=== PATIENT | male | born 1935 | race Two or more races ===

== ENCOUNTER 2023-12-13 15:57 | Emergency (ER) | payer MEDICARE, BC ==
[~2023-12-13] VITALS: Ht 162.6 cm; Wt 113.4 kg
[2023-12-13 16:12] VITALS: TEMP 98.4
[2023-12-13] MEDS ORDERED: LIDOCAINE 2% JEL UROJET 10 ML MM ONE (16:53)
[2023-12-13 18:32] LABS: BILIRUBIN,URINE NEGATIVE (NEGATIVE); BLOOD, URINE 3+ Ery/uL (NEGATIVE); COLOR,URINE YELLOW (YELLOW); KETONES,URINE NEGATIVE (NEGATIVE); LEUKOCYTE ESTERASE ,URINE 3+ (NEGATIVE); NITRITE, URINE NEGATIVE (NEGATIVE); PROTEIN,URINE 1+ mg/dl (NEGATIVE); UGLUCOSE NEGATIVE (NEGATIVE); UROBILINOGEN,URINE 0.2 EU/dL (0.2)
[2023-12-13 18:33] LABS: APPEARANCE,URINE SLIGHTLY CLOUDY (CLEAR)
[2023-12-13 18:56] LABS: RBC,URINE 51-80 /HPF (0-2); WBC,URINE 51-80 /HPF (0-3)
[2023-12-13 18:57] LABS: ADD URINE CULTURE YES; BACTERIA,URINE 2+ /HPF (None Seen); SQUAMOUS EPITHELIAL CELL,UR 0-2 /HPF (None Seen)
[2023-12-13] MEDS ORDERED: CIPROFLOXACIN HCL 500 MG TABLET PO ONE (19:00)
[2023-12-13] MEDS ORDERED: CIPR-262 PO (19:03)
[2023-12-13] MEDS ORDERED: CIPROFLOXACIN HCL 500 MG TABLET ONE (19:11)
[2023-12-13 21:06] VITALS: BP 140/89; O2SAT 99
== END 2023-12-13 19:38 | disposition home or self-care (01) ==
LOC: ER 16:23
DX: N39.0 Urinary tract infection, site not specified (principal); F03.90 Unspecified dementia, unspecified severity, without behavioral disturbance, psychotic disturbance, mood disturbance, and anxiety
CPT/HCPCS: 99284; 51702; 87086; 81001; J3490

== ENCOUNTER 2024-01-01 02:29 | Inpatient (IN) | payer MEDICARE, BC ==
[~2024-01-01] VITALS: Ht 162.6 cm; Wt 112.9 kg
[~2024-01-01 02:29] MED LIST: CIPR-262 PO
[2024-01-01 03:15] LABS: MONOCYTES # (AUTO) 0.1 K/uL (0.1-1.30); MONOCYTES % (AUTO) 0.4 % (2.0-12.0)
[2024-01-01 03:30] LABS: BASOPHILS # (AUTO) 0.1 K/uL (0.0-0.2); BASOPHILS % (AUTO) 0.7 % (0.0-2.0); HEMATOCRIT 38 % (39-51); LYMPHOCYTES # (AUTO) 0.1 K/uL (0.8-4.8); LYMPHOCYTES % (AUTO) 0.5 % (20.0-44.0); MEAN CORPUSCULAR HEMOGLOBIN 30 PG (26.0-33.0); MEAN CORPUSCULAR HGB CONC 34 g/dl (31.0-36.0); MEAN CORPUSCULAR VOLUME 89 fL (80-96); NEUTROPHILS # (AUTO) 15.7 K/uL (1.8-8.9); NEUTROPHILS % (AUTO) 98.4 % (43.0-81.0); RED BLOOD CELL COUNT(AUTO) 4.31 MIL/uL (4.5-6.0); RED CELL DISTRIBUTION WIDTH 13.8 % (11.5-15.0)
[2024-01-01 03:31] LABS: CALCIUM, SERUM 8.7 mg/dL (8.5-10.1); CARBON DIOXIDE 18 mmol/L (21-32); CHLORIDE 101 mmol/L (98-107); CREATININE 5.2 mg/dL (0.6-1.3); GLUCOSE 137 mg/dL (74-106); POTASSIUM 4.1 mmol/L (3.5-5.1); SODIUM SERUM 139 mmol/L (136-145); UREA NITROGEN, BLOOD 67 mg/dL (7-18)
[2024-01-01 03:32] LABS: INR 1.24 (0.91-1.10)
[2024-01-01 03:34] LABS: PLATELET COUNT (AUTO) 12 K/uL (150-450)
[2024-01-01 03:37] LABS: ALANINE AMINOTRANSFERASE 27 U/L (12-78); ALBUMIN 3.6 g/dL (3.4-5.0); ALKALINE PHOSPHATASE 76 U/L (46-116); ASPARTATE AMINOTRANSFERASE 72 U/L (15-37); BILIRUBIN,DIRECT 0.2 mg/dL (0.0-0.2); BILIRUBIN,TOTAL 0.8 mg/dL (0.2-1.0); TOTAL PROTEIN, SERUM 7.1 g/dL (6.4-8.2)
[2024-01-01] MEDS ORDERED: CEFTRIAXONE 1GM BAG (ER ONLY) 50 ML IV ONE (03:47)
[2024-01-01 04:14] LABS: APPEARANCE,URINE CLOUDY (CLEAR); BILIRUBIN,URINE NEGATIVE (NEGATIVE); BLOOD, URINE 3+ Ery/uL (NEGATIVE); COLOR,URINE YELLOW (YELLOW); KETONES,URINE NEGATIVE (NEGATIVE); LEUKOCYTE ESTERASE ,URINE 3+ (NEGATIVE); NITRITE, URINE NEGATIVE (NEGATIVE); PH,URINE 7.5 (5.0-8.0); PROTEIN,URINE 2+ mg/dl (NEGATIVE); UGLUCOSE NEGATIVE (NEGATIVE); UROBILINOGEN,URINE 0.2 EU/dL (0.2)
[2024-01-01] MEDS: CEFTRIAXONE 1GM BAG (ER ONLY) 1 GM/50 ML PIGGYBACK IV ONE (04:15)
[2024-01-01] MEDS: IV NS 0.9% 1,000 ML IV PRN (04:15)
[2024-01-01 04:50] LABS: ADD URINE CULTURE YES; BACTERIA,URINE Many /HPF (None Seen); RBC,URINE TOO NUMEROUS TO COUN /HPF (0-2); SQUAMOUS EPITHELIAL CELL,UR Few /HPF (None Seen); WBC,URINE TOO NUMEROUS TO COUN /HPF (0-3)
[2024-01-01 04:59] LABS: ANISOCYTOSIS 1+; BAND % (MANUAL) 6 % (0.0-5.0); LYMPHOCYTES % (MANUAL) 1 % (16-48); MONOCYTES % (MANUAL) 3 % (0-11.0); NEUTROPHILS % (MANUAL) 90 (42-76); PLATELET ESTIMATE GIANT PLATELET SEEN
[2024-01-01] MEDS ORDERED: ONDANSETRON HCL/PF 4 MG/2 ML VIAL IVP PRN (05:30)
[2024-01-01] MEDS ORDERED: MORPHINE SULFATE INJ 2 MG/ML DISP.SYRIN IV PRN (05:30)
[2024-01-01] MEDS: IV NS 0.9% 1,000 ML IV ONE (05:40)
[2024-01-01 07:33] LABS: LACTIC ACID 2.1 mmol/L (0.4-2.0)
[2024-01-01] MEDS: ACETAMINOPHEN 325 MG TABLET PO PRN (08:35)
[2024-01-01] MEDS ORDERED: ACET325T53 PO (09:58)
[2024-01-01] MEDS ORDERED: TAMS-12 PO (09:58)
[2024-01-01] MEDS ORDERED: AMLO-212 PO (09:58)
[2024-01-01] MEDS ORDERED: PRAV20TA4 PO (09:58)
[2024-01-01] MEDS ORDERED: NA P133E RC (09:58)
[2024-01-01] MEDS ORDERED: BISA10SU11 RC (09:58)
[2024-01-01] MEDS ORDERED: FINA5TAB11 PO (09:58)
[2024-01-01] MEDS ORDERED: ELTR75TA PO (09:58)
[2024-01-01 10:07] LABS: ABG BASE EXCESS -7.6 mmol/L; ABG OXYGEN SATURATION 91.3 % (92.0-98.5); ABG PCO2 24.5 mmHg (35.0-45.0); ABG PH 7.414 (7.350-7.450); ABG PO2 60.7 mmHg (75.0-100.0); ABG TOTAL HEMOGLOBIN 12.2 G/dL (13.5-18.0); AaDO2 167.6 mmHg; COHb 0.2 % (0.5-1.5); MetHb 0.2 % (0.0-1.5); O2Hb 90.9 % (94.0-97.0); SITE, ABG Right Radial; VENT MODE, BG 4LPM NC
[2024-01-01 10:19] VITALS: BP 90/50; TEMP 102.9; O2SAT 94
[2024-01-01 10:29] VITALS: BP 104/47; TEMP 101.2; O2SAT 97
[2024-01-01 10:45] VITALS: BP 100/50; TEMP 100.1; O2SAT 97
[2024-01-01] MEDS: Z GUARD REMEDY 4 OZ OINT TP SCH (11:45)
[2024-01-01] MEDS ORDERED: NA PHOS,M-B/NA PHOS,DI-BA 1 EA ENEMA RC PRN (12:30)
[2024-01-01 13:25] VITALS: BP 104/47; TEMP 99.8; O2SAT 97
[2024-01-01] MEDS ORDERED: ACETAMINOPHEN 325 MG TABLET PO ONE (14:00)
[2024-01-01] MEDS ORDERED: diphenhydrAMINE HCL 50 MG/ML VIAL IV ONE (14:00)
[2024-01-01 16:00] VITALS: BP 98/51; TEMP 99; O2SAT 97
[2024-01-01 16:25] LABS: FREE PSA 21.34 ng/mL (0.00-45); PROSTATE SPECIFIC ANTIGEN SCR 61.21 ng/mL (0.00-4.00); THYROID STIMULATING HORMONE 0.326 uIU/mL (0.358-3.74)
[2024-01-01 17:03] LABS: RHEUMATOID FACTOR SCREEN NEGATIVE (NEGATIVE)
[2024-01-01 20:00] VITALS: BP 90/53; TEMP 99.5; O2SAT 97
[2024-01-01] MEDS: CEFEPIME 1 GM in IV D5W 50 ML IV SCH (21:57)
[2024-01-02] VITALS (10 sets, daily range): BP systolic 101–120; BP diastolic 47–58; TEMP 97.5–98.7; O2SAT 95–99
[2024-01-02] MEDS ORDERED: CEFTRIAXONE 1 G in IV D5W 50 ML IV SCH (06:00)
[2024-01-02 07:03] LABS: INR 1.2 (0.91-1.10); PARTIAL THROMBOPLASTIN TIME 35.3 SEC (24.3-34.3); PROTHROMBIN TIME 12.6 SECS (9.2-11.1)
[2024-01-02 07:05] LABS: D-DIMER 8.27 mg/L(FEU (0.17-0.50)
[2024-01-02 07:10] LABS: ALANINE AMINOTRANSFERASE 57 U/L (12-78); ALBUMIN 2.5 g/dL (3.4-5.0); ALKALINE PHOSPHATASE 54 U/L (46-116); ASPARTATE AMINOTRANSFERASE 145 U/L (15-37); BILIRUBIN,TOTAL 0.6 mg/dL (0.2-1.0); CALCIUM, SERUM 7.7 mg/dL (8.5-10.1); CARBON DIOXIDE 20 mmol/L (21-32); CHLORIDE 110 mmol/L (98-107); GLUCOSE 109 mg/dL (74-106); MAGNESIUM 2.5 mg/dL (1.8-2.4); PHOSPHORUS 6.5 mg/dL (2.5-4.9); POTASSIUM 3.6 mmol/L (3.5-5.1); SODIUM SERUM 146 mmol/L (136-145); TOTAL PROTEIN, SERUM 5.7 g/dL (6.4-8.2)
[2024-01-02 07:12] LABS: UREA NITROGEN, BLOOD 84 mg/dL (7-18)
[2024-01-02 07:48] LABS: BASOPHILS % (AUTO) 0.1 % (0.0-2.0); HEMATOCRIT 34 % (39-51); HEMOGLOBIN 11.7 g/dL (13.5-17.5); LYMPHOCYTES # (AUTO) 0.2 K/uL (0.8-4.8); LYMPHOCYTES % (AUTO) 1.1 % (20.0-44.0); MEAN CORPUSCULAR HEMOGLOBIN 31 PG (26.0-33.0); MEAN CORPUSCULAR HGB CONC 34 g/dl (31.0-36.0); MEAN CORPUSCULAR VOLUME 89 fL (80-96); MONOCYTES # (AUTO) 0.5 K/uL (0.1-1.30); MONOCYTES % (AUTO) 2.2 % (2.0-12.0); NEUTROPHILS # (AUTO) 20.7 K/uL (1.8-8.9); NEUTROPHILS % (AUTO) 96.6 % (43.0-81.0); RED BLOOD CELL COUNT(AUTO) 3.83 MIL/uL (4.5-6.0); RED CELL DISTRIBUTION WIDTH 13.9 % (11.5-15.0); WHITE BLOOD COUNT (AUTO) 21.5 K/uL (4.3-11.0)
[2024-01-02 07:51] LABS: PLATELET COUNT (AUTO) 7 K/uL (150-450)
[2024-01-02 08:08] LABS: IMMUNOGLOBULIN A, SERUM 59 mg/dL (61-437); IMMUNOGLOBULIN G, SERUM 666 mg/dL (603-1613); IMMUNOGLOBULIN M, SERUM 303 mg/dL (15-143)
[2024-01-02] MEDS ORDERED: NEPRO VAN 237 ML CAN PO PRN (08:30)
[2024-01-02 09:08] LABS: *ANA ANTI-CENTROMERE B AB <0.2 AI (0.0-0.9); *ANA ANTI-DNA(DS) AB, QN <1 IU/mL (0-9); *ANA ANTI-JO-1 <0.2 AI (0.0-0.9); *ANA ANTICHROMATIN ANTIBODY 0.8 AI (0.0-0.9); *ANA RNP ANTIBODIES >8.0 AI (0.0-0.9); *ANA SJOGREN'S ANTI-SS-A <0.2 AI (0.0-0.9); *ANA SJOGREN'S ANTI-SS-B <0.2 AI (0.0-0.9); *ANAANTI-SCLERODERMA-70 AB <0.2 AI (0.0-0.9); *ANASMITH AB <0.2 AI (0.0-0.9)
[2024-01-02] MEDS: dexaMETHasone SOD PHOSPHATE 10 MG/ML VIAL IV SCH (10:41)
[2024-01-02 11:12] LABS: *SPE A/G RATIO 1.1 (0.7-1.7); *SPE ALBUMIN 2.8 g/dL (2.9-4.4); *SPE ALPHA-1-GLOBULIN 0.4 g/dL (0.0-0.4); *SPE ALPHA-2-GLOBULIN 0.7 g/dL (0.4-1.0); *SPE BETA GLOBULIN 0.6 g/dL (0.7-1.3); *SPE GLOBULIN, TOTAL 2.5 g/dL (2.2-3.9); *SPE M-SPIKE 0.4 g/dL (Not Observed); *SPE PROTEIN TOTAL 5.3 g/dL (6.0-8.5); *SPEGAMMA GLOBULIN 0.8 g/dL (0.4-1.8); HEPATITIS B SURFACE AB Non Reactive (.)
[2024-01-02 11:17] LABS: ANISOCYTOSIS 1+; BAND % (MANUAL) 22 % (0.0-5.0); EOSINOPHILS % (MANUAL) 0 % (0-4); LYMPHOCYTES % (MANUAL) 2 % (16-48); MONOCYTES % (MANUAL) 3 % (0-11.0); NEUTROPHILS % (MANUAL) 73 (42-76); PLATELET ESTIMATE DECREASED
[2024-01-02 14:57] LABS: BASOPHILS % (AUTO) 0.1 % (0.0-2.0); EOSINOPHILS % (AUTO) 0.1 % (0.0-6.0); HEMATOCRIT 33 % (39-51); HEMOGLOBIN 11.2 g/dL (13.5-17.5); LYMPHOCYTES # (AUTO) 0.2 K/uL (0.8-4.8); MEAN CORPUSCULAR HEMOGLOBIN 30 PG (26.0-33.0); MEAN CORPUSCULAR HGB CONC 34 g/dl (31.0-36.0); MEAN CORPUSCULAR VOLUME 89 fL (80-96); MONOCYTES # (AUTO) 0.5 K/uL (0.1-1.30); MONOCYTES % (AUTO) 2.2 % (2.0-12.0); NEUTROPHILS # (AUTO) 21.7 K/uL (1.8-8.9); NEUTROPHILS % (AUTO) 96.6 % (43.0-81.0); RED BLOOD CELL COUNT(AUTO) 3.73 MIL/uL (4.5-6.0); RED CELL DISTRIBUTION WIDTH 14.2 % (11.5-15.0); WHITE BLOOD COUNT (AUTO) 22.4 K/uL (4.3-11.0)
[2024-01-02 15:00] LABS: PLATELET COUNT (AUTO) 6 K/uL (150-450)
[2024-01-02] MEDS: diphenhydrAMINE HCL 50 MG/ML VIAL IV ONE (15:30)
[2024-01-02] MEDS: ACETAMINOPHEN 325 MG TABLET PO ONE (15:30)
[2024-01-02 15:42] LABS: EOSINOPHILS % (AUTO) 0.1 % (0.0-6.0); HEMATOCRIT 33 % (39-51); HEMOGLOBIN 11.1 g/dL (13.5-17.5); LYMPHOCYTES # (AUTO) 0.3 K/uL (0.8-4.8); LYMPHOCYTES % (AUTO) 1.2 % (20.0-44.0); MEAN CORPUSCULAR HEMOGLOBIN 30 PG (26.0-33.0); MEAN CORPUSCULAR HGB CONC 33 g/dl (31.0-36.0); MEAN CORPUSCULAR VOLUME 90 fL (80-96); MONOCYTES % (AUTO) 4.3 % (2.0-12.0); NEUTROPHILS # (AUTO) 21.9 K/uL (1.8-8.9); NEUTROPHILS % (AUTO) 94.4 % (43.0-81.0); RED BLOOD CELL COUNT(AUTO) 3.71 MIL/uL (4.5-6.0); RED CELL DISTRIBUTION WIDTH 14.5 % (11.5-15.0); WHITE BLOOD COUNT (AUTO) 23.2 K/uL (4.3-11.0)
[2024-01-02 15:55] LABS: BAND % (MANUAL) 12 % (0.0-5.0); LYMPHOCYTES % (MANUAL) 3 % (16-48); MONOCYTES % (MANUAL) 2 % (0-11.0); NEUTROPHILS % (MANUAL) 83 (42-76)
[2024-01-02 15:56] LABS: PLATELET ESTIMATE DECREASED
[2024-01-02 16:43] LABS: PLATELET COUNT (AUTO) 5 K/uL (150-450)
[2024-01-02] MEDS: FERROUS SULFATE (325 MG) 325 MG/TAB TABLET PO SCH (17:46)
[2024-01-02 18:47] LABS: PLATELET ESTIMATE DECREASED
[2024-01-03] VITALS: BP 110/60; TEMP 98; O2SAT 99
[2024-01-03 03:07] LABS: FOLIC ACID 10.2 ng/mL (>3.0)
[2024-01-03 04:00] VITALS: BP 140/66; TEMP 98; O2SAT 99
[2024-01-03 07:22] LABS: HEMATOCRIT 34 % (39-51); HEMOGLOBIN 11.4 g/dL (13.5-17.5); LYMPHOCYTES # (AUTO) 0.5 K/uL (0.8-4.8); LYMPHOCYTES % (AUTO) 1.9 % (20.0-44.0); MEAN CORPUSCULAR HEMOGLOBIN 30 PG (26.0-33.0); MEAN CORPUSCULAR HGB CONC 34 g/dl (31.0-36.0); MEAN CORPUSCULAR VOLUME 89 fL (80-96); NEUTROPHILS # (AUTO) 23.2 K/uL (1.8-8.9); NEUTROPHILS % (AUTO) 94.1 % (43.0-81.0); RED BLOOD CELL COUNT(AUTO) 3.79 MIL/uL (4.5-6.0); RED CELL DISTRIBUTION WIDTH 14.3 % (11.5-15.0); WHITE BLOOD COUNT (AUTO) 24.6 K/uL (4.3-11.0)
[2024-01-03 07:37] LABS: INR 1.07 (0.91-1.10); PARTIAL THROMBOPLASTIN TIME 30.1 SEC (24.3-34.3); PROTHROMBIN TIME 11.3 SECS (9.2-11.1)
[2024-01-03 07:44] LABS: D-DIMER 7.23 mg/L(FEU (0.17-0.50)
[2024-01-03 07:55] LABS: PLATELET COUNT (AUTO) 6 K/uL (150-450)
[2024-01-03 07:57] LABS: CALCIUM, SERUM 7.9 mg/dL (8.5-10.1); CARBON DIOXIDE 22 mmol/L (21-32); CHLORIDE 113 mmol/L (98-107); CREATININE 2.4 mg/dL (0.6-1.3); GLUCOSE 116 mg/dL (74-106); POTASSIUM 3.5 mmol/L (3.5-5.1); SODIUM SERUM 150 mmol/L (136-145)
[2024-01-03 08:00] VITALS: BP 136/62; TEMP 98.1; O2SAT 97
[2024-01-03 08:01] LABS: UREA NITROGEN, BLOOD 88 mg/dL (7-18)
[2024-01-03 11:24] LABS: ANISOCYTOSIS 1+; BAND % (MANUAL) 11 % (0.0-5.0); BASOPHILS % (MANUAL) 0 % (0.0-2.0); EOSINOPHILS % (MANUAL) 0 % (0-4); LYMPHOCYTES % (MANUAL) 3 % (16-48); MONOCYTES % (MANUAL) 5 % (0-11.0); NEUTROPHILS % (MANUAL) 81 (42-76); PLATELET ESTIMATE DECREASED
[2024-01-03 12:00] VITALS: BP 131/70; TEMP 98.3; O2SAT 97
[2024-01-03] MEDS: diphenhydrAMINE HCL 50 MG/ML VIAL IV ONE (14:40)
[2024-01-03] MEDS: ACETAMINOPHEN 325 MG TABLET PO ONE (14:40)
[2024-01-03 16:00] VITALS: BP 119/70; TEMP 98.1; O2SAT 97
[2024-01-03] MEDS: IV D5/0.45 NACL 1,000 ML IV PRN (17:01)
[2024-01-03 20:00] VITALS: BP 120/61; TEMP 97.9; O2SAT 96
[2024-01-04] VITALS (8 sets, daily range): BP systolic 112–140; BP diastolic 56–82; TEMP 97.9–98.9; O2SAT 92–100
[2024-01-04 07:07] LABS: BASOPHILS % (AUTO) 0.1 % (0.0-2.0); HEMATOCRIT 33 % (39-51); HEMOGLOBIN 11.1 g/dL (13.5-17.5); LYMPHOCYTES # (AUTO) 0.9 K/uL (0.8-4.8); LYMPHOCYTES % (AUTO) 4.4 % (20.0-44.0); MEAN CORPUSCULAR HEMOGLOBIN 30 PG (26.0-33.0); MEAN CORPUSCULAR HGB CONC 34 g/dl (31.0-36.0); MEAN CORPUSCULAR VOLUME 89 fL (80-96); MONOCYTES # (AUTO) 1.7 K/uL (0.1-1.30); NEUTROPHILS # (AUTO) 18.9 K/uL (1.8-8.9); NEUTROPHILS % (AUTO) 87.5 % (43.0-81.0); RED BLOOD CELL COUNT(AUTO) 3.71 MIL/uL (4.5-6.0); RED CELL DISTRIBUTION WIDTH 13.9 % (11.5-15.0); WHITE BLOOD COUNT (AUTO) 21.6 K/uL (4.3-11.0)
[2024-01-04 07:14] LABS: PLATELET COUNT (AUTO) 3 K/uL (150-450)
[2024-01-04 07:26] LABS: D-DIMER 2.95 mg/L(FEU (0.17-0.50); INR 1.09 (0.91-1.10); PARTIAL THROMBOPLASTIN TIME 29.1 SEC (24.3-34.3); PROTHROMBIN TIME 11.5 SECS (9.2-11.1)
[2024-01-04 07:30] LABS: CARBON DIOXIDE 27 mmol/L (21-32); CHLORIDE 110 mmol/L (98-107); CREATININE 1.6 mg/dL (0.6-1.3); GLUCOSE 139 mg/dL (74-106); POTASSIUM 3.5 mmol/L (3.5-5.1); SODIUM SERUM 146 mmol/L (136-145); UREA NITROGEN, BLOOD 76 mg/dL (7-18)
[2024-01-04 11:32] LABS: ANISOCYTOSIS 1+; BAND % (MANUAL) 13 % (0.0-5.0); BASOPHILS % (MANUAL) 0 % (0.0-2.0); EOSINOPHILS % (MANUAL) 0 % (0-4); LYMPHOCYTES % (MANUAL) 3 % (16-48); MONOCYTES % (MANUAL) 5 % (0-11.0); NEUTROPHILS % (MANUAL) 79 (42-76); PLATELET ESTIMATE DECREASED
[2024-01-04] MEDS ORDERED: diphenhydrAMINE HCL 50 MG/ML VIAL IV ONE (12:00)
[2024-01-04] MEDS ORDERED: DIPHENHYDRAMINE HCL 12.5 MG/5 ML UDC PO PRN (22:30)
[2024-01-04] MEDS: diphenhydrAMINE HCL 50 MG/ML VIAL IV PRN (22:51)
[2024-01-04] MEDS: ACETAMINOPHEN 325 MG TABLET PO ONE (22:51)
[2024-01-05] VITALS (25 sets, daily range): BP systolic 108–160; BP diastolic 52–95; TEMP 97–98.1; O2SAT 95–98
[2024-01-05 09:22] LABS: CALCIUM, SERUM 8.3 mg/dL (8.5-10.1); CREATININE 1.3 mg/dL (0.6-1.3); POTASSIUM 3.5 mmol/L (3.5-5.1)
[2024-01-05 09:43] LABS: BASOPHILS # (AUTO) 0.1 K/uL (0.0-0.2); BASOPHILS % (AUTO) 0.3 % (0.0-2.0); EOSINOPHILS % (AUTO) 0.1 % (0.0-6.0); HEMATOCRIT 33 % (39-51); HEMOGLOBIN 11.1 g/dL (13.5-17.5); LYMPHOCYTES # (AUTO) 2.4 K/uL (0.8-4.8); LYMPHOCYTES % (AUTO) 14.5 % (20.0-44.0); MEAN CORPUSCULAR HEMOGLOBIN 30 PG (26.0-33.0); MEAN CORPUSCULAR HGB CONC 33 g/dl (31.0-36.0); MEAN CORPUSCULAR VOLUME 89 fL (80-96); MONOCYTES # (AUTO) 1.2 K/uL (0.1-1.30); MONOCYTES % (AUTO) 7.6 % (2.0-12.0); NEUTROPHILS # (AUTO) 12.6 K/uL (1.8-8.9); NEUTROPHILS % (AUTO) 77.5 % (43.0-81.0); RED BLOOD CELL COUNT(AUTO) 3.76 MIL/uL (4.5-6.0); RED CELL DISTRIBUTION WIDTH 13.6 % (11.5-15.0); RETICULOCYTE COUNT 0.2 % (0.6-2.5); WHITE BLOOD COUNT (AUTO) 16.3 K/uL (4.3-11.0)
[2024-01-05 09:46] LABS: PLATELET COUNT (AUTO) 4 K/uL (150-450)
[2024-01-05 10:02] LABS: D-DIMER 2.41 mg/L(FEU (0.17-0.50); INR 1.18 (0.91-1.10); PARTIAL THROMBOPLASTIN TIME 26.7 SEC (24.3-34.3); PROTHROMBIN TIME 12.4 SECS (9.2-11.1)
[2024-01-05 11:54] LABS: ANISOCYTOSIS 1+; BAND % (MANUAL) 2 % (0.0-5.0); BASOPHILS % (MANUAL) 0 % (0.0-2.0); EOSINOPHILS % (MANUAL) 0 % (0-4); LYMPHOCYTES % (MANUAL) 21 % (16-48); MONOCYTES % (MANUAL) 6 % (0-11.0); NEUTROPHILS % (MANUAL) 71 (42-76)
[2024-01-05 12:40] LABS: PLATELET ESTIMATE DECREASED
[2024-01-06] VITALS: BP 157/63; TEMP 98.2; O2SAT 94
[2024-01-06 04:00] VITALS: BP 159/63; TEMP 97.3; O2SAT 93
[2024-01-06 07:39] LABS: BASOPHILS % (AUTO) 0.3 % (0.0-2.0); EOSINOPHILS # (AUTO) 0.1 K/uL (0.0-0.7); EOSINOPHILS % (AUTO) 0.4 % (0.0-6.0); HEMATOCRIT 33 % (39-51); LYMPHOCYTES # (AUTO) 2.4 K/uL (0.8-4.8); LYMPHOCYTES % (AUTO) 14.7 % (20.0-44.0); MEAN CORPUSCULAR HEMOGLOBIN 30 PG (26.0-33.0); MEAN CORPUSCULAR HGB CONC 34 g/dl (31.0-36.0); MEAN CORPUSCULAR VOLUME 89 fL (80-96); MONOCYTES # (AUTO) 1.9 K/uL (0.1-1.30); MONOCYTES % (AUTO) 11.5 % (2.0-12.0); NEUTROPHILS # (AUTO) 11.8 K/uL (1.8-8.9); NEUTROPHILS % (AUTO) 73.1 % (43.0-81.0); RED BLOOD CELL COUNT(AUTO) 3.69 MIL/uL (4.5-6.0); RED CELL DISTRIBUTION WIDTH 13.6 % (11.5-15.0)
[2024-01-06 07:42] LABS: D-DIMER 3.52 mg/L(FEU (0.17-0.50); INR 1.19 (0.91-1.10); PARTIAL THROMBOPLASTIN TIME 25.4 SEC (24.3-34.3); PROTHROMBIN TIME 12.5 SECS (9.2-11.1)
[2024-01-06 07:52] LABS: PLATELET COUNT (AUTO) 7 K/uL (150-450)
[2024-01-06 08:00] VITALS: BP 165/75; TEMP 97.6; O2SAT 95
[2024-01-06 09:00] LABS: CALCIUM, SERUM 8.2 mg/dL (8.5-10.1); CREATININE 1.3 mg/dL (0.6-1.3); POTASSIUM 3.6 mmol/L (3.5-5.1)
[2024-01-06 09:22] LABS: WHITE BLOOD COUNT (AUTO) 16.1 K/uL (4.3-11.0)
[2024-01-06 10:58] LABS: ANISOCYTOSIS 1+; BAND % (MANUAL) 2 % (0.0-5.0); BASOPHILS % (MANUAL) 0 % (0.0-2.0); EOSINOPHILS % (MANUAL) 0 % (0-4); LYMPHOCYTES % (MANUAL) 18 % (16-48); MONOCYTES % (MANUAL) 7 % (0-11.0); NEUTROPHILS % (MANUAL) 73 (42-76); OVALOCYTES 1+; PLATELET ESTIMATE GIANT PLATELET SEEN
[2024-01-06 12:00] VITALS: BP 129/58; TEMP 97.6; O2SAT 96
[2024-01-06 16:00] VITALS: BP 164/73; TEMP 98.3; O2SAT 95
[2024-01-06] MEDS: methylPREDNISolone SOD SUCC 125 MG/2ML VIAL IV SCH (17:38)
[2024-01-06 20:00] VITALS: BP 139/71; TEMP 99; O2SAT 95
[2024-01-06] MEDS ORDERED: LEVOFLOXACIN 500 MG /D5W 100ML 500 MG in PREMIX 1 EA IV SCH (22:00)
[2024-01-06 22:23] LABS: BASOPHILS % (AUTO) 0.2 % (0.0-2.0); EOSINOPHILS # (AUTO) 0.2 K/uL (0.0-0.7); EOSINOPHILS % (AUTO) 0.8 % (0.0-6.0); HEMATOCRIT 35 % (39-51); HEMOGLOBIN 11.7 g/dL (13.5-17.5); LYMPHOCYTES # (AUTO) 2.6 K/uL (0.8-4.8); LYMPHOCYTES % (AUTO) 12.9 % (20.0-44.0); MEAN CORPUSCULAR HEMOGLOBIN 30 PG (26.0-33.0); MEAN CORPUSCULAR HGB CONC 33 g/dl (31.0-36.0); MEAN CORPUSCULAR VOLUME 89 fL (80-96); MONOCYTES # (AUTO) 1.8 K/uL (0.1-1.30); MONOCYTES % (AUTO) 9.1 % (2.0-12.0); NEUTROPHILS # (AUTO) 15.5 K/uL (1.8-8.9); RED BLOOD CELL COUNT(AUTO) 3.97 MIL/uL (4.5-6.0); RED CELL DISTRIBUTION WIDTH 13.6 % (11.5-15.0); WHITE BLOOD COUNT (AUTO) 20.2 K/uL (4.3-11.0)
[2024-01-06 22:45] LABS: PLATELET COUNT (AUTO) 10 K/uL (150-450)
[2024-01-06] MEDS: diphenhydrAMINE HCL 50 MG/ML VIAL IV ONE (23:07)
[2024-01-06] MEDS: ACETAMINOPHEN 325 MG TABLET PO ONE (23:07)
[2024-01-07] VITALS (15 sets, daily range): BP systolic 130–169; BP diastolic 57–80; TEMP 97.5–98.5; O2SAT 94–95
[2024-01-07] MEDS ORDERED: OLANZAPINE 10 MG VIAL IM SCH (02:00)
[2024-01-07] MEDS: OLANZAPINE 10 MG VIAL IM PRN (02:06)
[2024-01-07 07:13] LABS: BASOPHILS % (AUTO) 0.2 % (0.0-2.0); EOSINOPHILS # (AUTO) 0.2 K/uL (0.0-0.7); HEMATOCRIT 34 % (39-51); HEMOGLOBIN 11.5 g/dL (13.5-17.5); LYMPHOCYTES # (AUTO) 2.5 K/uL (0.8-4.8); LYMPHOCYTES % (AUTO) 13.7 % (20.0-44.0); MEAN CORPUSCULAR HEMOGLOBIN 30 PG (26.0-33.0); MEAN CORPUSCULAR HGB CONC 34 g/dl (31.0-36.0); MEAN CORPUSCULAR VOLUME 88 fL (80-96); MONOCYTES # (AUTO) 1.1 K/uL (0.1-1.30); MONOCYTES % (AUTO) 6.1 % (2.0-12.0); NEUTROPHILS # (AUTO) 14.2 K/uL (1.8-8.9); RED BLOOD CELL COUNT(AUTO) 3.86 MIL/uL (4.5-6.0); RED CELL DISTRIBUTION WIDTH 13.3 % (11.5-15.0)
[2024-01-07 07:15] LABS: PLATELET COUNT (AUTO) 24 K/uL (150-450)
[2024-01-07 07:23] LABS: D-DIMER 3.98 mg/L(FEU (0.17-0.50); INR 1.17 (0.91-1.10); PARTIAL THROMBOPLASTIN TIME 25.6 SEC (24.3-34.3); PROTHROMBIN TIME 12.3 SECS (9.2-11.1)
[2024-01-07] MEDS: LEVOFLOXACIN 500 MG /D5W 100ML 500 MG in PREMIX 1 EA IV SCH (07:33)
[2024-01-07 09:20] LABS: CALCIUM, SERUM 8.4 mg/dL (8.5-10.1); CARBON DIOXIDE 26 mmol/L (21-32); CHLORIDE 107 mmol/L (98-107); CREATININE 1.3 mg/dL (0.6-1.3); GLUCOSE 102 mg/dL (74-106); POTASSIUM 3.1 mmol/L (3.5-5.1); SODIUM SERUM 147 mmol/L (136-145); UREA NITROGEN, BLOOD 4 mg/dL (7-18)
[2024-01-07 10:02] LABS: ANISOCYTOSIS 1+; BASOPHILS % (MANUAL) 0 % (0.0-2.0); EOSINOPHILS % (MANUAL) 1 % (0-4); LYMPHOCYTES % (MANUAL) 11 % (16-48); MONOCYTES % (MANUAL) 8 % (0-11.0); NEUTROPHILS % (MANUAL) 80 (42-76); PLATELET ESTIMATE GIANT PLATELET SEEN
[2024-01-07 10:03] LABS: OVALOCYTES 1+
[2024-01-07] MEDS ORDERED: OLANZAPINE 10 MG VIAL IM PRN (11:00)
[2024-01-08] VITALS: BP 135/74; TEMP 98.7; O2SAT 95
[2024-01-08] MEDS: POTASSIUM CL. PREMIX PERIPHER. 50 ML IV ONE (01:45)
[2024-01-08] MEDS: POTASSIUM CL. PREMIX PERIPHER. 50 ML IV SCH (03:30)
[2024-01-08 04:00] VITALS: BP 127/71; TEMP 98.5; O2SAT 97
[2024-01-08 07:44] LABS: BASOPHILS % (AUTO) 0.1 % (0.0-2.0); EOSINOPHILS # (AUTO) 0.1 K/uL (0.0-0.7); EOSINOPHILS % (AUTO) 0.5 % (0.0-6.0); HEMATOCRIT 33 % (39-51); LYMPHOCYTES # (AUTO) 2.4 K/uL (0.8-4.8); LYMPHOCYTES % (AUTO) 11.1 % (20.0-44.0); MEAN CORPUSCULAR HEMOGLOBIN 31 PG (26.0-33.0); MEAN CORPUSCULAR HGB CONC 34 g/dl (31.0-36.0); MEAN CORPUSCULAR VOLUME 92 fL (80-96); MONOCYTES # (AUTO) 1.4 K/uL (0.1-1.30); MONOCYTES % (AUTO) 6.4 % (2.0-12.0); NEUTROPHILS # (AUTO) 17.7 K/uL (1.8-8.9); NEUTROPHILS % (AUTO) 81.9 % (43.0-81.0); RED BLOOD CELL COUNT(AUTO) 3.56 MIL/uL (4.5-6.0); RED CELL DISTRIBUTION WIDTH 13.8 % (11.5-15.0); WHITE BLOOD COUNT (AUTO) 21.6 K/uL (4.3-11.0)
[2024-01-08 07:58] LABS: D-DIMER 2.81 mg/L(FEU (0.17-0.50); INR 1.22 (0.91-1.10); PARTIAL THROMBOPLASTIN TIME 24.9 SEC (24.3-34.3); PROTHROMBIN TIME 12.8 SECS (9.2-11.1)
[2024-01-08 07:59] LABS: CALCIUM, SERUM 8.3 mg/dL (8.5-10.1); CREATININE 1.3 mg/dL (0.6-1.3); MAGNESIUM 1.8 mg/dL (1.8-2.4); PHOSPHORUS 2.8 mg/dL (2.5-4.9)
[2024-01-08 08:00] VITALS: BP 105/59; TEMP 98.1; O2SAT 96
[2024-01-08 08:03] LABS: PLATELET COUNT (AUTO) 34 K/uL (150-450)
[2024-01-08] MEDS: methylPREDNISolone SOD SUCC 125 MG/2ML VIAL IV SCH (09:08)
[2024-01-08 10:30] LABS: ANISOCYTOSIS 1+; BAND % (MANUAL) 6 % (0.0-5.0); BASOPHILS % (MANUAL) 0 % (0.0-2.0); EOSINOPHILS % (MANUAL) 1 % (0-4); LYMPHOCYTES % (MANUAL) 14 % (16-48); MONOCYTES % (MANUAL) 4 % (0-11.0); NEUTROPHILS % (MANUAL) 75 (42-76); OVALOCYTES 1+; PLATELET ESTIMATE GIANT PLATELET SEEN
[2024-01-08 12:00] VITALS: BP 120/60; TEMP 98.2; O2SAT 94
[2024-01-08 16:00] VITALS: BP 108/58; TEMP 98.3; O2SAT 94
[2024-01-08 20:00] VITALS: BP 118/67; TEMP 98.3; O2SAT 99
[2024-01-09] VITALS: BP 134/73; TEMP 98; O2SAT 94
[2024-01-09 04:00] VITALS: BP 115/61; TEMP 97.9; O2SAT 95
[2024-01-09 07:22] LABS: BASOPHILS % (AUTO) 0.2 % (0.0-2.0); EOSINOPHILS # (AUTO) 0.1 K/uL (0.0-0.7); EOSINOPHILS % (AUTO) 0.4 % (0.0-6.0); HEMATOCRIT 31 % (39-51); HEMOGLOBIN 10.4 g/dL (13.5-17.5); LYMPHOCYTES % (AUTO) 14.2 % (20.0-44.0); MEAN CORPUSCULAR HEMOGLOBIN 30 PG (26.0-33.0); MEAN CORPUSCULAR HGB CONC 33 g/dl (31.0-36.0); MEAN CORPUSCULAR VOLUME 89 fL (80-96); MONOCYTES # (AUTO) 1.6 K/uL (0.1-1.30); MONOCYTES % (AUTO) 7.3 % (2.0-12.0); NEUTROPHILS # (AUTO) 16.7 K/uL (1.8-8.9); NEUTROPHILS % (AUTO) 77.9 % (43.0-81.0); PLATELET COUNT (AUTO) 56 K/uL (150-450); RED BLOOD CELL COUNT(AUTO) 3.52 MIL/uL (4.5-6.0); RED CELL DISTRIBUTION WIDTH 13.7 % (11.5-15.0); WHITE BLOOD COUNT (AUTO) 21.4 K/uL (4.3-11.0)
[2024-01-09 07:27] LABS: CALCIUM, SERUM 8.1 mg/dL (8.5-10.1); CARBON DIOXIDE 26 mmol/L (21-32); CHLORIDE 109 mmol/L (98-107); CREATININE 1.4 mg/dL (0.6-1.3); GLUCOSE 102 mg/dL (74-106); MAGNESIUM 1.7 mg/dL (1.8-2.4); PHOSPHORUS 3.2 mg/dL (2.5-4.9); POTASSIUM 3.5 mmol/L (3.5-5.1); SODIUM SERUM 143 mmol/L (136-145); UREA NITROGEN, BLOOD 43 mg/dL (7-18)
[2024-01-09 08:00] VITALS: BP 109/43; TEMP 98.1; O2SAT 97
[2024-01-09 09:50] LABS: BAND % (MANUAL) 8 % (0.0-5.0); EOSINOPHILS % (MANUAL) 1 % (0-4); LYMPHOCYTES % (MANUAL) 15 % (16-48); MONOCYTES % (MANUAL) 8 % (0-11.0); NEUTROPHILS % (MANUAL) 68 (42-76)
[2024-01-09 09:51] LABS: HYPOCHROMASIA 1+; OVALOCYTES 1+; PLATELET ESTIMATE GIANT PLATELET SEEN
[2024-01-09] MEDS: MAGNESIUM OXIDE 400 MG TABLET PO ONE (09:56)
[2024-01-09 12:00] VITALS: O2SAT 97
[2024-01-09 16:00] VITALS: BP 121/53; TEMP 98.1; O2SAT 99
[2024-01-09 20:00] VITALS: BP 121/63; TEMP 98.1; O2SAT 95
[2024-01-10] VITALS: BP 126/69; TEMP 99.3; O2SAT 92
[2024-01-10 04:00] VITALS: BP 122/54; TEMP 98.7; O2SAT 94
[2024-01-10 07:14] LABS: BASOPHILS # (AUTO) 0.1 K/uL (0.0-0.2); BASOPHILS % (AUTO) 0.3 % (0.0-2.0); EOSINOPHILS % (AUTO) 0.2 % (0.0-6.0); HEMATOCRIT 30 % (39-51); HEMOGLOBIN 10.1 g/dL (13.5-17.5); LYMPHOCYTES # (AUTO) 2.4 K/uL (0.8-4.8); MEAN CORPUSCULAR HEMOGLOBIN 30 PG (26.0-33.0); MEAN CORPUSCULAR HGB CONC 34 g/dl (31.0-36.0); MEAN CORPUSCULAR VOLUME 89 fL (80-96); MONOCYTES # (AUTO) 1.5 K/uL (0.1-1.30); MONOCYTES % (AUTO) 7.6 % (2.0-12.0); NEUTROPHILS # (AUTO) 15.8 K/uL (1.8-8.9); NEUTROPHILS % (AUTO) 79.9 % (43.0-81.0); RED BLOOD CELL COUNT(AUTO) 3.37 MIL/uL (4.5-6.0); RED CELL DISTRIBUTION WIDTH 13.6 % (11.5-15.0); WHITE BLOOD COUNT (AUTO) 19.7 K/uL (4.3-11.0)
[2024-01-10 07:39] LABS: PLATELET COUNT (AUTO) 41 K/uL (150-450)
[2024-01-10 07:57] LABS: CALCIUM, SERUM 8.2 mg/dL (8.5-10.1); CARBON DIOXIDE 26 mmol/L (21-32); CHLORIDE 109 mmol/L (98-107); CREATININE 1.2 mg/dL (0.6-1.3); GLUCOSE 102 mg/dL (74-106); MAGNESIUM 1.8 mg/dL (1.8-2.4); POTASSIUM 3.6 mmol/L (3.5-5.1); SODIUM SERUM 142 mmol/L (136-145); UREA NITROGEN, BLOOD 42 mg/dL (7-18)
[2024-01-10 08:00] VITALS: BP 130/50; TEMP 98.5; O2SAT 99
[2024-01-10] MEDS: methylPREDNISolone SOD SUCC 125 MG/2ML VIAL IV SCH (08:29)
[2024-01-10 10:47] LABS: BAND % (MANUAL) 7 % (0.0-5.0); BASOPHILS % (MANUAL) 0 % (0.0-2.0); EOSINOPHILS % (MANUAL) 2 % (0-4); LYMPHOCYTES % (MANUAL) 11 % (16-48); MONOCYTES % (MANUAL) 8 % (0-11.0); NEUTROPHILS % (MANUAL) 72 (42-76); PLATELET ESTIMATE GIANT PLATELET SEEN
[2024-01-10 11:41] LABS: ANISOCYTOSIS 1+
[2024-01-10 16:00] VITALS: BP 134/62; TEMP 97.9; O2SAT 98
[2024-01-10 20:00] VITALS: BP 140/83; TEMP 98.9; O2SAT 98
[2024-01-11 04:00] VITALS: BP 145/68; TEMP 98.4; O2SAT 96
[2024-01-11 08:00] VITALS: BP 132/65; TEMP 96.8; O2SAT 96
[2024-01-11 08:09] LABS: EOSINOPHILS % (AUTO) 0.3 % (0.0-6.0); HEMATOCRIT 32 % (39-51); HEMOGLOBIN 10.3 g/dL (13.5-17.5); LYMPHOCYTES # (AUTO) 2.2 K/uL (0.8-4.8); LYMPHOCYTES % (AUTO) 12.6 % (20.0-44.0); MEAN CORPUSCULAR HEMOGLOBIN 29 PG (26.0-33.0); MEAN CORPUSCULAR HGB CONC 33 g/dl (31.0-36.0); MEAN CORPUSCULAR VOLUME 90 fL (80-96); MONOCYTES # (AUTO) 1.2 K/uL (0.1-1.30); MONOCYTES % (AUTO) 7.2 % (2.0-12.0); NEUTROPHILS # (AUTO) 13.8 K/uL (1.8-8.9); NEUTROPHILS % (AUTO) 79.9 % (43.0-81.0); RED BLOOD CELL COUNT(AUTO) 3.53 MIL/uL (4.5-6.0); RED CELL DISTRIBUTION WIDTH 13.8 % (11.5-15.0); WHITE BLOOD COUNT (AUTO) 17.3 K/uL (4.3-11.0)
[2024-01-11 08:20] LABS: PLATELET COUNT (AUTO) 49 K/uL (150-450)
[2024-01-11] MEDS: methylPREDNISolone SOD SUCC 125 MG/2ML VIAL IV SCH (09:27)
[2024-01-11 09:57] LABS: CALCIUM, SERUM 8.3 mg/dL (8.5-10.1); CREATININE 1.1 mg/dL (0.6-1.3); MAGNESIUM 1.8 mg/dL (1.8-2.4); PHOSPHORUS 3.3 mg/dL (2.5-4.9); POTASSIUM 3.9 mmol/L (3.5-5.1)
[2024-01-11 11:00] LABS: ANISOCYTOSIS 1+; BAND % (MANUAL) 6 % (0.0-5.0); BASOPHILS % (MANUAL) 0 % (0.0-2.0); EOSINOPHILS % (MANUAL) 0 % (0-4); LYMPHOCYTES % (MANUAL) 14 % (16-48); MONOCYTES % (MANUAL) 9 % (0-11.0); NEUTROPHILS % (MANUAL) 71 (42-76); OVALOCYTES 1+; PLATELET ESTIMATE GIANT PLATELET SEEN
[2024-01-11 16:00] VITALS: BP 121/75; TEMP 96.8; O2SAT 93
[2024-01-11 20:00] VITALS: BP 129/89; TEMP 98.3; O2SAT 95
[2024-01-12 04:00] VITALS: BP 132/77; TEMP 97.3; O2SAT 94
[2024-01-12 07:04] LABS: EOSINOPHILS # (AUTO) 0.1 K/uL (0.0-0.7); EOSINOPHILS % (AUTO) 0.4 % (0.0-6.0); HEMATOCRIT 34 % (39-51); HEMOGLOBIN 11.3 g/dL (13.5-17.5); LYMPHOCYTES # (AUTO) 2.1 K/uL (0.8-4.8); LYMPHOCYTES % (AUTO) 14.6 % (20.0-44.0); MEAN CORPUSCULAR HEMOGLOBIN 29 PG (26.0-33.0); MEAN CORPUSCULAR HGB CONC 33 g/dl (31.0-36.0); MEAN CORPUSCULAR VOLUME 89 fL (80-96); MONOCYTES # (AUTO) 1.3 K/uL (0.1-1.30); NEUTROPHILS # (AUTO) 10.7 K/uL (1.8-8.9); RED BLOOD CELL COUNT(AUTO) 3.86 MIL/uL (4.5-6.0); WHITE BLOOD COUNT (AUTO) 14.1 K/uL (4.3-11.0)
[2024-01-12] MEDS ORDERED: FERR325T28 PO (07:11)
[2024-01-12] MEDS ORDERED: NUT.237L67 PO (07:11)
[2024-01-12] MEDS ORDERED: LEVO500T90 PO (07:11)
[2024-01-12 07:21] LABS: CALCIUM, SERUM 8.7 mg/dL (8.5-10.1); CREATININE 1.2 mg/dL (0.6-1.3); MAGNESIUM 1.9 mg/dL (1.8-2.4); PHOSPHORUS 3.6 mg/dL (2.5-4.9); POTASSIUM 3.5 mmol/L (3.5-5.1)
[2024-01-12 07:44] LABS: PLATELET COUNT (AUTO) 50 K/uL (150-450)
[2024-01-12 09:02] VITALS: BP 139/67; TEMP 98.3; O2SAT 95
[2024-01-12 09:32] LABS: ANISOCYTOSIS 1+; BAND % (MANUAL) 1 % (0.0-5.0); LYMPHOCYTES % (MANUAL) 18 % (16-48); MONOCYTES % (MANUAL) 9 % (0-11.0); NEUTROPHILS % (MANUAL) 72 (42-76); PLATELET ESTIMATE DECREASED
[2024-01-13] MEDS ORDERED: LEVOFLOXACIN (250MG) 250 MG TABLET PO SCH (09:00)
== END 2024-01-12 14:26 | DRG 871 ==
LOC: ER 02:40 → TELE1 05:05 → TELE-TD 10:12 → TELE1 01-06 10:11 → MEDSG1 01-09 10:50
PROVIDERS: ADMIT Internal Medicine; ATTEND Nurse Practitioner Acute Care
PROC: 30233R1 Transfusion of Nonautologous Platelets into Peripheral Vein, Percutaneous Approach (ICD-10-PCS; 2024-01-01)
PROC: 0T2BX0Z Change Drainage Device in Bladder, External Approach (ICD-10-PCS; 2024-01-01)
PROC: 30233K1 Transfusion of Nonautologous Frozen Plasma into Peripheral Vein, Percutaneous Approach (ICD-10-PCS; 2024-01-03)
PROC: 05HC33Z Insertion of Infusion Device into Left Basilic Vein, Percutaneous Approach (ICD-10-PCS; principal; 2024-01-06)
DX: A41.89 Other specified sepsis (principal); G93.41 Metabolic encephalopathy; U07.1 COVID-19; I21.A1 Myocardial infarction type 2; J69.0 Pneumonitis due to inhalation of food and vomit; N13.6 Pyonephrosis; N39.0 Urinary tract infection, site not specified; E87.20 Acidosis, unspecified; D61.818 Other pancytopenia; M62.82 Rhabdomyolysis; F05 Delirium due to known physiological condition; D69.6 Thrombocytopenia, unspecified; N40.0 Benign prostatic hyperplasia without lower urinary tract symptoms; E78.5 Hyperlipidemia, unspecified; F03.90 Unspecified dementia, unspecified severity, without behavioral disturbance, psychotic disturbance, mood disturbance, and anxiety; N18.9 Chronic kidney disease, unspecified; Z66 Do not resuscitate; R33.8 Other retention of urine; N40.1 Benign prostatic hyperplasia with lower urinary tract symptoms; Z79.899 Other long term (current) drug therapy; B96.89 Other specified bacterial agents as the cause of diseases classified elsewhere; N13.9 Obstructive and reflux uropathy, unspecified; R65.20 Severe sepsis without septic shock; R31.0 Gross hematuria; R29.810 Facial weakness; N32.0 Bladder-neck obstruction; J98.4 Other disorders of lung; R09.02 Hypoxemia; B95.62 Methicillin resistant Staphylococcus aureus infection as the cause of diseases classified elsewhere; T38.0X5A Adverse effect of glucocorticoids and synthetic analogues, initial encounter; Z86.2 Personal history of diseases of the blood and blood-forming organs and certain disorders involving the immune mechanism; Y92.89 Other specified places as the place of occurrence of the external cause; T83.021A Displacement of indwelling urethral catheter, initial encounter; Y73.8 Miscellaneous gastroenterology and urology devices associated with adverse incidents, not elsewhere classified; D47.2 Monoclonal gammopathy; F29 Unspecified psychosis not due to a substance or known physiological condition
CPT/HCPCS: 36415; 36600; 70450-TC; 71045-TC; 71250-TC; 78306-TC; 80048-TC; 80053-TC; 80076-TC; 81001; 82232; 82550-TC; 82553; 82607-TC; 82728-TC; 82784; 82803-TC; 82962-TC; 83010; 83540-TC; 83605-TC; 83615-TC; 83735-TC; 84100-TC; 84153-TC; 84154-TC; 84155; 84165; 84439-TC; 84443-TC; 84484-TC; 85025-TC; 85045-TC; 85385-TC; 85396; 85730-TC; 86225; 86235; 86334; 86431-TC; 86706; 86803; 86850-TC; 86880-TC; 87040-TC; 87086-TC; 87340; 93307-TC; 97110-TC; 97116-TC; 97530-TC; A4216; A4223; A9503; G0378; J0692; J0696; J1100; J1200; J1956; J2930; J3480; J3490; J7030; J7040; J7050; J7060; P9017; P9034; P9035

== ENCOUNTER 2024-01-25 13:11 | Emergency (ER) | payer MEDICARE, BC ==
[~2024-01-25] VITALS: Ht 162.6 cm; Wt 74.8 kg
[~2024-01-25 13:11] MED LIST changes: +ACET325T53 PO; +AMLO-212 PO; +BISA10SU11 RC; -CIPR-262 PO; +ELTR75TA PO; +FERR325T28 PO; +FINA5TAB11 PO; +LEVO500T90 PO; +NA P133E RC; +NUT.237L67 PO; +PRAV20TA4 PO; +TAMS-12 PO
[2024-01-25 13:42] VITALS: BP 147/87; TEMP 98.1; O2SAT 97
[2024-01-25] MEDS ORDERED: LIDOCAINE 2% JEL UROJET 10 ML MM ONE (14:31)
[2024-01-25] MEDS ORDERED: WATER FOR INJECTION,STERILE 10 ML ONE (14:32)
== END 2024-01-25 18:00 ==
LOC: ER 13:25
DX: T83.018A Breakdown (mechanical) of other urinary catheter, initial encounter (principal); Y92.89 Other specified places as the place of occurrence of the external cause
CPT/HCPCS: 99284; 51702; J3490